=== PATIENT | female | born 1955 | race Two or more races ===

== ENCOUNTER 2017-08-30 07:34 | Outpatient (CLI) | payer OTHER | END 2017-08-30 07:45 | disposition home or self-care (01) | LOC: MAMO-SONO 07:34 | DX: Z12.31 Encounter for screening mammogram for malignant neoplasm of breast (principal); N60.11 Diffuse cystic mastopathy of right breast; N60.12 Diffuse cystic mastopathy of left breast ==

== ENCOUNTER 2017-09-16 13:10 | Outpatient (CLI) | payer OTHER | END 2017-09-16 13:19 | disposition home or self-care (01) | LOC: SONOGRAMA 13:10 → MAMO-SONO 13:15 → SONOGRAMA 13:19 | DX: M25.552 Pain in left hip (principal) ==

== ENCOUNTER 2017-09-19 14:57 | Outpatient (CLI) | payer OTHER | END 2017-09-19 16:00 | disposition home or self-care (01) | LOC: NUCLEAR 14:57 | DX: M81.0 Age-related osteoporosis without current pathological fracture (principal) ==